=== PATIENT | female | born 2000 | race Asian ===

== ENCOUNTER 2024-01-10 08:52 | Emergency (ER) | payer BC ==
[~2024-01-10] VITALS: Ht 165.1 cm; Wt 71.4 kg
[2024-01-10] MEDS ORDERED: NS 1,000 ML IV ONE (09:15)
[2024-01-10 09:30] LABS: BASO # 0.02 K/mm3 (0.02-0.10); EOS # 0.24 K/mm3 (0.04-0.40); EOS % 4.6 % (1.0-5.0); HEMOGLOBIN 13.5 g/dL (12.5-16.0); LYMPH# 1.59 K/mm3 (1.50-4.00); MEAN CELL VOLUME 88 fl (78-100); MEAN CORPUSCULAR HEMOGLOBIN 29 pg (27-31); MEAN CORPUSCULAR HGB CONC 33 g/dL (33-37); MEAN PLATELET VOLUME 11.1 fl (7.4-10.4); MONO # 0.41 K/mm3 (0.20-0.80); NEU # 2.95 K/mm3 (1.40-6.50); PLATELET COUNT 200 K/mm3 (130-400); RED BLOOD COUNT 4.68 M/mm3 (4.10-5.30); RED CELL DISTRIBUTION WIDTH 13.4 % (11.5-14.5); WHITE BLOOD COUNT 5.2 K/mm3 (4.8-10.8)
[2024-01-10] MEDS ORDERED: Morphine 4 MG/ML VIAL IV ONE (09:45)
[2024-01-10 12:36] VITALS: BP 99/54
== END 2024-01-10 12:47 | disposition home or self-care (01) ==
LOC: ED 08:52
PROVIDERS: Family Medicine
DX: R07.89 Other chest pain (principal)
CPT/HCPCS: J2270; J7030